=== PATIENT | female | born 1980 | race Caucasian/White ===

== ENCOUNTER → 2020-12-12 | Outpatient (CLI) | payer BC, OTHER ==
[~2020-12-12] MED LIST: BENTYL 20MG TAB20 MG PO
== END ==
LOC: LAB 22:34
DX: Z01.812 Encounter for preprocedural laboratory examination (principal); Z20.822 Contact with and (suspected) exposure to COVID-19
CPT/HCPCS: U0002

== ENCOUNTER → 2021-03-07 | Outpatient (CLI) | payer BC, OTHER ==
[2021-03-07 19:25] LABS: HEMOGLOBIN 12.8 gm/dl (12.3-15.3); RED BLOOD COUNT 3.9 M/UL (4.00-5.10)
[2021-03-07 19:37] LABS: BUN/CREATININE RATIO 20 (0-10)
[2021-03-09 18:11] LABS: EBV AB VCA, IGG >600.0 U/mL (0.0-17.9); EBV AB VCA, IGM <36.0 U/mL (0.0-35.9); EBV NUCLEAR ANTIGEN AB, IGG 26.7 U/mL (0.0-17.9)
[2021-03-13 09:11] LABS: DRVVT 35.7 sec (0.0-47.0); LUPUS REFLEX INTERPRETATION Comment: (.); PT 10.4 sec (9.1-12.0); PT 1:1NP 10.4 sec (9.1-12.0); PTT-LA 32.5 sec (0.0-51.9); THROMBIN TIME 18.9 sec (0.0-23.0)
== END ==
LOC: RT 18:33 → RAD 18:33 → LAB 18:33
PROVIDERS: Nurse Practitioner
DX: R06.02 Shortness of breath (principal); R53.83 Other fatigue; R60.0 Localized edema
CPT/HCPCS: 71046; 80053; 82530; 82533; 82550; 82553; 83880; 84439; 84443; 84484; 85025; 85379; 85611; 85652; 86038; 93005

== ENCOUNTER → 2021-03-09 | Outpatient (CLI) | payer BC, OTHER ==
[2021-03-10 08:13] LABS: CREATININE, URINE 94.9 mg/dL (Not Estab.)
== END ==
LOC: LAB 15:29
PROVIDERS: Nurse Practitioner
DX: E87.6 Hypokalemia (principal); R06.02 Shortness of breath; R22.43 Localized swelling, mass and lump, lower limb, bilateral; R53.83 Other fatigue
CPT/HCPCS: 82043; 82570; 84132

== ENCOUNTER → 2021-03-22 | Outpatient (CLI) | payer BC, OTHER | LOC: CT 07:55 → KOH-I 10:00 | DX: R10.84 Generalized abdominal pain (principal); R22.43 Localized swelling, mass and lump, lower limb, bilateral; R10.11 Right upper quadrant pain; K40.90 Unilateral inguinal hernia, without obstruction or gangrene, not specified as recurrent | CPT/HCPCS: Q9967 ==

== ENCOUNTER 2022-04-06 14:16 | Inpatient (IN) | payer BC ==
[~2022-04-06] VITALS: Ht 167.6 cm; Wt 152.0 kg
[2022-04-06 14:52] LABS: HEMOGLOBIN 14.1 gm/dl (12.3-15.3); RED BLOOD COUNT 4.42 M/UL (4.00-5.10); WHITE BLOOD COUNT 12.1 K/UL (4.5-11.0)
[2022-04-06 15:21] LABS: BUN/CREATININE RATIO 18 (0-10)
[2022-04-06] MEDS ORDERED: FENOFIBRIC ACI135 MG PO (17:31)
[2022-04-06] MEDS ORDERED: METFORMIN HCL500 MG PO (17:32)
[2022-04-06] MEDS ORDERED: NP THYROID60 MG PO (17:32)
[2022-04-06] MEDS ORDERED: LOSARTAN POTASS25 MG PO (17:33)
[2022-04-06] MEDS ORDERED: BUSPIRONE HCL15 MG PO (17:33)
[2022-04-06] MEDS ORDERED: SERTRALINE HCL50 MG PO (17:34)
[2022-04-07 02:05] LABS: HEMOGLOBIN 13.7 gm/dl (12.3-15.3); RED BLOOD COUNT 4.29 M/UL (4.00-5.10)
[2022-04-07 02:43] LABS: BUN/CREATININE RATIO 22 (0-10)
[2022-04-08 02:05] LABS: HEMOGLOBIN 12.1 gm/dl (12.3-15.3); WHITE BLOOD COUNT 15.3 K/UL (4.5-11.0)
[2022-04-08 02:11] LABS: RED BLOOD COUNT 3.8 M/UL (4.00-5.10)
[2022-04-08 02:34] LABS: BUN/CREATININE RATIO 23 (0-10)
[2022-04-09 04:10] LABS: HEMOGLOBIN 12.1 gm/dl (12.3-15.3); RED BLOOD COUNT 3.81 M/UL (4.00-5.10); WHITE BLOOD COUNT 14.7 K/UL (4.5-11.0)
[2022-04-09 04:54] LABS: BUN/CREATININE RATIO 12 (0-10)
[2022-04-09 08:14] LABS: HEMOGLOBIN A1C 5.5 % (4.8-5.6)
[2022-04-10 06:26] LABS: HEMOGLOBIN 11.9 gm/dl (12.3-15.3); RED BLOOD COUNT 3.73 M/UL (4.00-5.10); WHITE BLOOD COUNT 13.6 K/UL (4.5-11.0)
[2022-04-10] MEDS ORDERED: COLACE100 MG PO (09:23)
[2022-04-10] MEDS ORDERED: PHENERGAN 12.12.5 M1 PO (09:23)
[2022-04-10] MEDS ORDERED: MIRALAX17 GM PO (09:23)
[2022-04-10 14:18] LABS: BUN/CREATININE RATIO 13 (0-10)
== END 2022-04-10 11:38 | disposition home or self-care (01) | DRG 313 ==
LOC: ER1 14:16 → CDU 15:42 → MED SURG 4 15:42
PROVIDERS: Emergency Medicine; Physician Assistant Medical; ADMIT Internal Medicine
PROC: B24BZZZ Ultrasonography of Heart with Aorta (ICD-10-PCS; principal; 2022-04-07)
PROC: 4A12XM4 Monitoring of Cardiac Stress, External Approach (ICD-10-PCS; 2022-04-08)
DX: R07.9 Chest pain, unspecified (principal); K56.7 Ileus, unspecified; Z68.43 Body mass index [BMI] 50.0-59.9, adult; Z20.822 Contact with and (suspected) exposure to COVID-19; D72.829 Elevated white blood cell count, unspecified; E66.9 Obesity, unspecified; I10 Essential (primary) hypertension; E78.5 Hyperlipidemia, unspecified; E28.2 Polycystic ovarian syndrome; I08.1 Rheumatic disorders of both mitral and tricuspid valves; Z90.49 Acquired absence of other specified parts of digestive tract; Z98.891 History of uterine scar from previous surgery; Z82.49 Family history of ischemic heart disease and other diseases of the circulatory system; Z98.84 Bariatric surgery status; Z83.49 Family history of other endocrine, nutritional and metabolic diseases
CPT/HCPCS: ECHO; 36415; 71045; 74018; 78452; 80048; 80053; 80061; 81001; 82550; 82553; 83036; 83605; 83690; 83735; 84439; 84443; 84484; 84703; 85025; 85027; 85379; 85652; 86140; 87040; 87086; 93005; 93017; 93306; 96374; 96375; 99285; A9502; C9113; G0378; J0696; J1650; J2270; J2405; J2550; J2785; J7030; Q9967